=== PATIENT | female | born 1970 | race African-American/Black ===

== ENCOUNTER 2020-06-17 05:48 | Inpatient (IN) ==
[2020-06-17] MEDS ORDERED: Famotidine IV 10 MG/ML 2 ml VIAL (20 mg) IV ONE (06:00)
[2020-06-17] MEDS ORDERED: Lactated Ringers 1000 ml BAG 1,000 ML IV SCH (06:00)
[2020-06-17] MEDS ORDERED: Buffered Lidocaine 1% SYRIN 1 ml INTRADERM ONE (06:00)
[2020-06-17] MEDS ORDERED: ceFAZolin 2 GM PREMIX 2 GM/50 ML BAG ONE (06:09)
[2020-06-17] MEDS ORDERED: Famotidine IV 10 MG/ML 2 ml VIAL (20 mg) ONE (06:10)
[2020-06-17] MEDS ORDERED: Lidocaine 2% PF 5 ML VIAL ONE ×2 (06:39→06:54)
[2020-06-17] MEDS ORDERED: Sevoflurane BOTTLE ONE (06:39)
[2020-06-17] MEDS ORDERED: Phenylephrine IV 10 MG/ML 1 ml VIAL ONE (06:39)
[2020-06-17] MEDS ORDERED: Propofol 10 MG/ML 20 ML BTL ONE ×3 (06:40→10:26)
[2020-06-17] MEDS ORDERED: Remifentanil 2 MG VIAL ONE ×2 (06:40→10:16)
[2020-06-17] MEDS ORDERED: Dexamethasone IV 4 MG/ML VIAL 1 ml VIAL ONE (06:40)
[2020-06-17] MEDS ORDERED: Ondansetron 4 mg VIAL 2 MG/ML 2 ml VIAL ONE ×2 (06:40→09:19)
[2020-06-17] MEDS ORDERED: Succinylcholine 200 mg VIAL 20 mg/ml 10 ml VIAL (200 mg) ONE (06:51)
[2020-06-17] MEDS ORDERED: Midazolam 2 mg/2 ml VIAL 1 mg/ml 2 ml VIAL (2 mg) ONE (06:58)
[2020-06-17] MEDS ORDERED: fentaNYL 250 mcg/5 ml 50 MCG/ML 5 ml VIAL (250 MCG) ONE (06:58)
[2020-06-17] MEDS ORDERED: Thrombin 5,000 UNITS 1 APPLIC KIT - topical use - TOPICAL ONE (07:12)
[2020-06-17] MEDS ORDERED: Lidocaine 1% w EPI 1:200,000 SDV 30 ML VIAL ONE (07:12)
[2020-06-17] MEDS ORDERED: ceFAZolin VIAL VIAL ONE (07:13)
[2020-06-17] MEDS ORDERED: Bacitracin INJECTION 50,000 UNITS ONE (07:13)
[2020-06-17] MEDS ORDERED: Gelfoam Sponge SIZE 100 SPONGE ONE (07:13)
[2020-06-17] MEDS ORDERED: Naloxone 0.4 mg VIAL 0.4 mg/ml 1 ml VIAL IV PRN (09:43)
[2020-06-17] MEDS ORDERED: Ondansetron 4 mg VIAL 2 MG/ML 2 ml VIAL IV PRN ×2 (09:43→12:17)
[2020-06-17] MEDS ORDERED: Prochlorperazine 5 mg/ml 2 ml VIAL (10 mg) IV PRN (09:43)
[2020-06-17] MEDS ORDERED: Acetaminophen IV 1 GM/100ML 100 ML ONE (12:02)
[2020-06-17] MEDS ORDERED: fentaNYL 100 mcg/2 ml 50 MCG/ML VIAL ONE ×2 (12:19→13:00)
[2020-06-17] MEDS: fentaNYL 100 mcg/2 ml 50 MCG/ML VIAL IV PRN ×4 (12:22→13:35)
[2020-06-17] MEDS: NS 0.9% 1000 ml BAG 1,000 ML IV SCH ×2 (13:47→23:46)
[2020-06-17] MEDS: Morphine 2 MG/ML SYRINGE IV PRN (13:58)
[2020-06-17] MEDS ORDERED: Albuterol 2.5mg/3 ml (0.083%) NEB.SOLN INH PRN (14:01)
[2020-06-17] MEDS: Dexamethasone IV 4 MG/ML VIAL 1 ml VIAL IV SLOW PU SCH ×2 (15:24→23:36)
[2020-06-17] MEDS: ceFAZolin 2 GM PREMIX 2 GM/50 ML BAG IVPB SCH ×2 (16:22→23:49)
[2020-06-17] MEDS ORDERED: Lorazepam PYXIS KEY PRN (16:34)
[2020-06-17] MEDS ORDERED: Orphenadrine Citrate INJ 30 mg/ml 2 ml VIAL (60 mg) IV ONE (17:00)
[2020-06-17] MEDS ORDERED: LORazepam 2 mg VIAL 1 ml IV PUSH ONE (17:00)
[2020-06-17] MEDS: Magnesium Hydroxide LIQ 30 ML UDC PO SCH (23:33)
[2020-06-18] MEDS: Morphine 2 MG/ML SYRINGE IV PRN (05:51)
[2020-06-18] MEDS: Dexamethasone IV 4 MG/ML VIAL 1 ml VIAL IV SLOW PU SCH (05:51)
[2020-06-18] MEDS: ceFAZolin 2 GM PREMIX 2 GM/50 ML BAG IVPB SCH ×2 (07:32→16:21)
[2020-06-18] MEDS: Magnesium Hydroxide LIQ 30 ML UDC PO SCH ×2 (09:14→20:28)
[2020-06-18] MEDS: Polyethylene Glycol 3350 17 GM PACKET PO SCH (09:14)
[2020-06-18] MEDS: CMCS:Vilazodone 10 mg TAB (NF) PO SCH (09:14)
[2020-06-18] MEDS: Multivitamins/Minerals TAB PO SCH (09:14)
[2020-06-18] MEDS: VITAMIN D PO SCH (09:15)
[2020-06-18] MEDS: Enoxaparin 40 MG/0.4 ML SYR SUBCUT SCH (09:18)
[2020-06-18] MEDS: Benzocaine/Menthol LOZ PO PRN (21:48)
[2020-06-19] MEDS: ceFAZolin 2 GM PREMIX 2 GM/50 ML BAG IVPB SCH ×3 (00:14→09:52)
[2020-06-19] MEDS: Benzocaine/Menthol LOZ PO PRN (06:30)
[2020-06-19 07:41] VITALS: BP 125/84
[2020-06-19] MEDS: Enoxaparin 40 MG/0.4 ML SYR SUBCUT SCH (09:36)
[2020-06-19] MEDS: Magnesium Hydroxide LIQ 30 ML UDC PO SCH (09:37)
[2020-06-19] MEDS: Multivitamins/Minerals TAB PO SCH (09:38)
[2020-06-19] MEDS: VITAMIN D PO SCH (09:40)
[2020-06-19] MEDS: Polyethylene Glycol 3350 17 GM PACKET PO SCH (09:42)
[2020-06-19] MEDS: CMCS:Vilazodone 10 mg TAB (NF) PO SCH (10:27)
[2020-06-20] MEDS ORDERED: Scopolamine PATCH Remove NOTE PATCH OFF ONE (09:45)
[2020-07-01] MEDS ORDERED: Cyanocobalamin INJ 1,000 MCG/ML VIAL 1 ML VIAL IM SCH (13:00)
== END 2020-06-19 13:10 | disposition home or self-care (01) | DRG 321 ==
LOC: AA 05:48 → SSU 13:38
PROVIDERS: ADMIT Neurological Surgery; ATTEND Neurological Surgery